=== PATIENT | female | born 1950 | race Hispanic/Latino ===

== ENCOUNTER 2016-11-27 14:48 | Outpatient (CLI) | payer MEDICARE | END 2016-11-27 14:49 | disposition home or self-care (01) | LOC: LABHHL 14:48 | PROVIDERS: ATTEND Surgery | DX: N60.02 Solitary cyst of left breast (principal) | CPT/HCPCS: 88112 ==

== ENCOUNTER 2019-07-14 13:32 | Outpatient (CLI) | payer MEDICARE ==
--- NOTE | 2019-07-14 14:47 | XRay Report ---
CHEST 2 VIEWS INDICATION: COUGH IN ADULT. COMPARISON: None FINDINGS: Support devices: None. Heart: Within normal limits. Lungs/pleura: There is minimal airspace disease suggested in the superior lingula. This could represe nt focal scarring although early infiltrate cannot be excluded. The remainder of the lungs are clear. No pleural fluid or pneumothorax. Additional findings: None. IMPRESSION: Questionable lingular opacity as described. If fever is present, early pneumonia could be considered. Signer Name: Jt Sifuentes Jr, MD Signed: 07/14/2019 2:43 PM Workstation Name: [id number]
== END 2019-07-14 13:33 | disposition home or self-care (01) ==
LOC: SPVIMAG 13:32
PROVIDERS: ATTEND Internal Medicine
DX: R05 Cough (principal)
CPT/HCPCS: 71046